=== PATIENT | female | born 1985 | race Caucasian/White ===

== ENCOUNTER 2017-03-29 16:35 | Emergency (ER) | payer MEDICAID, OTHER ==
[~2017-03-29] VITALS: Ht 170.2 cm; Wt 145.8 kg
[2017-03-29] MEDS ORDERED: ONDANSETRON 2MG/ML, 2ML IVPush ONE (17:30)
[2017-03-29] MEDS ORDERED: SODIUM CHLORIDE FLUSH 10ML SYR IVF ONE (17:30)
[2017-03-29] MEDS ORDERED: SODIUM CHLORIDE 0.9% 1,000ML IVBOLUS ONE ×2 (17:30→18:00)
[2017-03-29 17:59] LABS: MICROSCOPIC AUTO
[2017-03-29] MEDS ORDERED: MORPHINE SULFATE 4 MG/ML, 1ML IVPush PRN (18:00)
[2017-03-29 18:09] LABS: CULTURE INDICATED? YES
[2017-03-29 18:19] LABS: BASOPHILS % (AUTO) 1 % (0-1); EOSINOPHILS # (AUTO) 0.12 x10^3/uL (0-0.4); EOSINOPHILS % (AUTO) 1 % (1-7); LYMPHOCYTES # (AUTO) 2.77 x10^3/uL (1-3.4); LYMPHOCYTES % (AUTO) 29 % (22-44); MD NO; MEAN CORPUSCULAR HEMOGLOBIN 29.4 pg (27.0-34.8); MEAN CORPUSCULAR HGB CONC 34.5 g/dL (32.4-35.8); MEAN CORPUSCULAR VOLUME 85.2 fL (80-100); MEAN PLATELET VOLUME 9.1 fL (7.4-10.4); MONOCYTES # (AUTO) 0.56 x10^3/uL (0.2-0.8); MONOCYTES % (AUTO) 6 % (2-9); NEUTROPHILS # (AUTO) 6.16 x10^3/uL (1.8-6.8); NEUTROPHILS % (AUTO) 63 % (42-75); PLATELET COUNT 244 x10^3/uL (130-400); RED BLOOD COUNT 5.05 x10^6/uL (3.82-5.3); RED CELL DISTRIBUTION WIDTH 13.5 % (9.6-15.2)
[2017-03-29 18:24] LABS: ALBUMIN 3.5 g/dL (3.4-5.0); ANION GAP 9 mmol/L (5-15); CALCIUM 8.5 mg/dL (8.5-10.1); CHLORIDE 108 mmol/L (98-107)
[2017-03-29 18:30] LABS: ALANINE AMINOTRANSFERASE 31 U/L (12-78); ALKALINE PHOSPHATASE 69 U/L (45-117); BILIRUBIN,TOTAL 0.8 mg/dL (0.2-1.0); CREATININE 0.75 mg/dL (0.55-1.02); TOTAL PROTEIN 7.6 g/dL (6.4-8.2)
[2017-03-29] MEDS ORDERED: MORPHINE SULFATE 4 MG/ML, 1ML ONE (18:37)
[2017-03-29] MEDS ORDERED: ONDANSETRON 2MG/ML, 2ML ONE (18:37)
[2017-03-29] MEDS ORDERED: HYDROcodone/APAP 5/325 TABLET ONE (19:24)
[2017-03-29] MEDS ORDERED: ONDANSETRON ODT 4 MG ONE (19:24)
[2017-03-29] MEDS ORDERED: HYDROcodone/APAP 5/325 TABLET PO ONE (19:30)
[2017-03-29] MEDS ORDERED: ONDANSETRON ODT 4 MG PO ONE (19:30)
[2017-03-29 19:45] VITALS: BP 119/64
== END 2017-03-29 19:46 | disposition home or self-care (01) ==
LOC: ED 19:40
DX: N30.90 Cystitis, unspecified without hematuria (principal); E66.01 Morbid (severe) obesity due to excess calories
CPT/HCPCS: 36415; 76700; 80053; 81001; 83690; 84703; 85025; 87086; 96360; 99285; J7030; Q0162

== ENCOUNTER 2018-08-25 10:51 | Emergency (ER) | payer BC, OTHER ==
[~2018-08-25] VITALS: Ht 170.2 cm; Wt 149.9 kg
[2018-08-25 11:02] VITALS: BP 146/86
[2018-08-25] MEDS ORDERED: SODIUM CHLORIDE FLUSH 10ML SYR IVF ONE (11:30)
[2018-08-25 11:51] LABS: BASOPHILS # (AUTO) 0.03 x10^3/uL (0-0.1); BASOPHILS % (AUTO) 0 % (0-1); EOSINOPHILS # (AUTO) 0.13 x10^3/uL (0-0.4); EOSINOPHILS % (AUTO) 2 % (1-7); LYMPHOCYTES # (AUTO) 2.13 x10^3/uL (1-3.4); LYMPHOCYTES % (AUTO) 24 % (22-44); MD NO; MEAN CORPUSCULAR HEMOGLOBIN 29.5 pg (27.0-34.8); MEAN CORPUSCULAR HGB CONC 33.8 g/dL (32.4-35.8); MEAN CORPUSCULAR VOLUME 87.3 fL (80-100); MEAN PLATELET VOLUME 9.3 fL (7.4-10.4); MONOCYTES # (AUTO) 0.32 x10^3/uL (0.2-0.8); MONOCYTES % (AUTO) 4 % (2-9); NEUTROPHILS # (AUTO) 6.14 x10^3/uL (1.8-6.8); NEUTROPHILS % (AUTO) 70 % (42-75); PLATELET COUNT 236 x10^3/uL (130-400); RED BLOOD COUNT 5.48 x10^6/uL (3.82-5.3); RED CELL DISTRIBUTION WIDTH 13.7 % (9.6-15.2)
[2018-08-25 12:00] LABS: ALBUMIN 3.8 g/dL (3.4-5.0); ANION GAP 7 mmol/L (5-15); CALCIUM 9.1 mg/dL (8.5-10.1); CHLORIDE 107 mmol/L (98-107); CREATININE 0.88 mg/dL (0.55-1.02)
[2018-08-25] MEDS ORDERED: DIPHENHYDRAMINE 50 MG/ML, 1ML IVPush ONE (12:00)
[2018-08-25] MEDS ORDERED: KETOROLAC 30 MG/1 ML IVPush ONE (12:00)
[2018-08-25] MEDS ORDERED: PROCHLORPERAZINE 5 MG/ML, 2ML IVPush ONE (12:00)
[2018-08-25] MEDS ORDERED: KETOROLAC 30 MG/1 ML ONE (12:16)
[2018-08-25] MEDS ORDERED: PROCHLORPERAZINE 5 MG/ML, 2ML ONE (12:16)
[2018-08-25] MEDS ORDERED: DIPHENHYDRAMINE 50 MG/ML, 1ML ONE (12:16)
== END 2018-08-25 13:47 | disposition home or self-care (01) ==
LOC: ED 13:40
DX: R51 Headache (principal)
CPT/HCPCS: 36415; 70450; 80048; 82040; 84703; 85025; 93005; 96374; 96375; 99284; J0780; J1200; J1885

== ENCOUNTER 2019-12-31 21:18 | Emergency (ER) | payer OTHER ==
[~2019-12-31] VITALS: Ht 170.2 cm; Wt 141.2 kg
--- NOTE | 2019-12-31 21:34 | NUR ---
PT AMBULATED BACK TO ROOM WITH PORTABLE O2 FROM TRIAGE. REPORTS SOB, COUGH SINCE LAST WEDNESDAY. STATES COVID TEST CAME BACK NEGATIVE. Addendum: 12/31/19 at 2210 by SHELLYON PT REPORTS 11 POSITIVE COVID CASES AT HER PLACE OF EMPLOYMENT.
[2019-12-31] MEDS ORDERED: ESCI10TA10 PO (21:46)
[2019-12-31 22:19] LABS: BASOPHILS % (AUTO) 0 % (0-1); EOSINOPHILS % (AUTO) 0 % (1-7); LYMPHOCYTES % (AUTO) 26 % (22-44); MEAN CORPUSCULAR HEMOGLOBIN 28.6 pg (27.0-34.8); MEAN CORPUSCULAR HGB CONC 33.9 g/dL (32.4-35.8); MEAN PLATELET VOLUME 8.9 fL (7.4-10.4); MONOCYTES % (AUTO) 11 % (2-9); NEUTROPHILS % (AUTO) 63 % (42-75); PLATELET COUNT 191 x10^3/uL (130-400); RED BLOOD COUNT 5.17 x10^6/uL (3.82-5.3); RED CELL DISTRIBUTION WIDTH 13.5 % (9.6-15.2)
[2019-12-31 22:21] LABS: MD NO
[2019-12-31 22:31] LABS: ALANINE AMINOTRANSFERASE 52 U/L (12-78); ALBUMIN 3.5 g/dL (3.4-5.0); ANION GAP 8 mmol/L (5-15); CALCIUM 8.3 mg/dL (8.5-10.1); CHLORIDE 107 mmol/L (98-107); CREATININE 0.79 mg/dL (0.55-1.02)
[2019-12-31 22:37] LABS: ALKALINE PHOSPHATASE 66 U/L (45-117); BILIRUBIN,TOTAL 0.4 mg/dL (0.2-1.0); C-REACTIVE PROTEIN, QUANT 2.42 mg/dL (0.02-0.49); TOTAL PROTEIN 7.6 g/dL (6.4-8.2)
--- NOTE | 2019-12-31 22:53 | NUR ---
PT IN NO DISTRESS, WATCHING TV IN [facility]. UPDATED ON POC.
--- NOTE | 2019-12-31 23:33 | NUR ---
RA SPO2 WITH AMBULATION 87%. PT UNDERSTANDS POC. REPORTED TO RADHA KO.
--- NOTE | 2020-01-01 00:06 | NUR ---
PT WATCHING TV, RESTING COMFORTABLY, NO NEEDS AT THIS TIME
--- NOTE | 2020-01-01 01:06 | NUR ---
Patient resting in [facility] with no complaints. Awaiting home O2.
--- NOTE | 2020-01-01 02:10 | NUR ---
pt resting in [facility], no new complaints, waiting for home 02.
--- NOTE | 2020-01-01 04:28 | NUR ---
tp: still attempting to get home oxygen.
--- NOTE | 2020-01-01 04:40 | NUR ---
ROAD TEST; 73% RA, 95% 2L O2.
--- NOTE | 2020-01-01 05:44 | NUR ---
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
--- NOTE | 2020-01-01 06:08 | NUR ---
MT: Spoke with [facility] who states they are unable to provide service to this patient due to the dx because it is an acute dx.
--- NOTE | 2020-01-01 07:49 | NUR ---
[facility] CALLED AND STATED THEY WILL BE HERE "A LITTLE AFTER 8" TO DELIVER PATIENT O2.
--- NOTE | 2020-01-01 10:26 | NUR ---
PT ON RA FOR APPROX 10 MIN. PT AMBULATED DICKENS WITHOUT SOB, 02 DESATURATION.
[2020-01-01 10:27] VITALS: BP 121/79
--- NOTE | 2020-01-01 10:49 | NUR ---
PT NOW OFF 02 >20MIN. AMBULATED TO BATHROOM AND DRESSED. PT DENIES SOB, O2 SAT >93%. SPOKE WITH ERIC GRULLON TO ID WITHOUT HOME O2.
== END 2020-01-01 11:12 | disposition home or self-care (01) ==
LOC: ED 22:22
DX: U07.1 COVID-19 (principal); J18.9 Pneumonia, unspecified organism; J96.01 Acute respiratory failure with hypoxia; Z99.81 Dependence on supplemental oxygen; Z87.891 Personal history of nicotine dependence
CPT/HCPCS: 36415; 71045; 80053; 82728; 83605; 83615; 84145; 85025; 85379; 86140; 87040; 87635; 93005; 99291